=== PATIENT | male | born 1965 | race Caucasian/White ===

== ENCOUNTER 2021-10-24 21:46 | Emergency (ER) | payer MEDICAID ==
[~2021-10-24] VITALS: Ht 172.7 cm; Wt 72.6 kg
--- NOTE | 2021-10-24 23:07 | NUR ---
PROVIDED PT WITH DINNER TRAY, WELL TOLERATED.
[2021-10-24] MEDS: OLANZAPINE 10 MG VIAL IM ONE (23:13)
[2021-10-24] MEDS ORDERED: OLANZAPINE 10 MG VIAL IM ONE (23:19)
--- NOTE | 2021-10-24 23:29 | NUR ---
XRAY AT BEDSIDE.
[2021-10-24] MEDS ORDERED: METF-440 PO (23:33)
[2021-10-24] MEDS ORDERED: ONDA4TAB5 PO (23:33)
[2021-10-24] MEDS ORDERED: BENZ1LOZ58 MM (23:33)
[2021-10-24] MEDS ORDERED: BENZ-13 PO (23:33)
[2021-10-24] MEDS ORDERED: ATOR10TA PO (23:33)
[2021-10-24] MEDS ORDERED: AMLO10TA59 PO (23:33)
[2021-10-24] MEDS ORDERED: LEVE500T9 PO (23:33)
[2021-10-24] MEDS ORDERED: OLAN10TA3 PO (23:33)
[2021-10-24] MEDS ORDERED: HYDR-894 PO (23:33)
[2021-10-24] MEDS ORDERED: DIVA500T54 PO (23:33)
[2021-10-24] MEDS ORDERED: ASPI81TA31 PO (23:33)
[2021-10-24] MEDS ORDERED: OLAN5TAB3 PO (23:33)
[2021-10-24 23:34] LABS: HEMATOCRIT 39.9 % (36.7-47.1); MEAN CORPUSCULAR HEMOGLOBIN 32.2 uug (23.8-33.4); MEAN CORPUSCULAR VOLUME 94.9 fL (73.0-96.2); PLATELET COUNT (AUTO) 308 K/uL (152-348)
[2021-10-24] MEDS: ONDANSETRON ODT 4 MG TAB.RAPDIS SL ONE (23:35)
[2021-10-24] MEDS: HYDROCODONE/APAP 10-325 MG TABLET PO ONE (23:35)
[2021-10-24] MEDS ORDERED: ONDANSETRON ODT 4 MG TAB.RAPDIS ONE (23:41)
[2021-10-24] MEDS ORDERED: HYDROCODONE/APAP 10-325 MG TABLET ONE (23:42)
[2021-10-24 23:43] LABS: CARBON DIOXIDE 27 mmol/L (21-32); CHLORIDE 102 mmol/L (98-107); CREATININE 1.1 mg/dL (0.6-1.3); GLUCOSE 109 mg/dL (74-106); UREA NITROGEN, BLOOD 18 mg/dL (7-18)
[2021-10-24 23:49] LABS: *BILIRUBIN,URIN NEGATIVE (NEGATIVE); *BLOOD, URINE NEGATIVE (NEGATIVE); *CLARITY,URINE CLEAR (CLEAR); *COLOR,URINE YELLOW (YELLOW); *KETONES,URINE TRACE (NEGATIVE); *UROBILINOGEN,URINE 0.2 E.U./dl (NORMAL); LEUKOCYTE ESTERASE ,URINE NEGATIVE (NEGATIVE); NITRITE, URINE NEGATIVE (NEGATIVE); UGLUCOSE NEGATIVE (NEGATIVE)
[2021-10-24 23:52] LABS: ETHANOL < 3 MG/DL (0-0)
[2021-10-24 23:56] LABS: THYROID STIMULATING HORMONE 0.927 mIU/mL (0.358-3.740)
[2021-10-25 00:02] LABS: BILIRUBIN,DIRECT 0.1 mg/dL (0.0-0.2); BILIRUBIN,TOTAL 0.3 mg/dL (0.2-1.0)
[2021-10-25 00:03] LABS: ACETAMINOPHEN < 2.0 ug/mL (10-30); ALANINE AMINOTRANSFERASE 32 U/L (16-63); ALKALINE PHOSPHATASE 87 U/L (50-136); ASPARTATE AMINOTRANSFERASE 16 U/L (15-37); TOTAL PROTEIN, SERUM 7.7 g/dL (6.4-8.2)
[2021-10-25 00:39] LABS: *AMPHETAMINE, URINE NEGATIVE (NEGATIVE); *CANNABINOID, URINE NEGATIVE (NEGATIVE); *COCCAINE, URINE NEGATIVE (NEGATIVE); *OPIATE, URINE NEGATIVE (NEGATIVE); *PHENCYCLIDINE SCREEN,URINE NEGATIVE (NEGATIVE)
--- NOTE | 2021-10-25 01:12 | NUR ---
DAVID FROM CRISIS AT BEDSIDE TO [facility].
--- NOTE | 2021-10-25 04:19 | NUR ---
PT AMBULATED TO RESTROOM, STEADY GAIT.
--- NOTE | 2021-10-25 09:45 | NUR ---
Called [facility] for transport back to [facility], eta 30 mins.
--- NOTE | 2021-10-25 10:35 | NUR ---
PT WAS D/C'd TO HIS NURSING FACILITY VIA [facility]. REPORT WAS GIVEN TO AMBULANCE EMT AND TO NURSING FACILITY [employer]. D/C INSTRUCTIONS GIVEN TO THE PT BY DR PETER.
[2021-10-25 10:39] VITALS: BP 130/69
== END 2021-10-25 10:39 ==
LOC: ER 21:53
DX: F03.90 Unspecified dementia, unspecified severity, without behavioral disturbance, psychotic disturbance, mood disturbance, and anxiety (principal); E05.00 Thyrotoxicosis with diffuse goiter without thyrotoxic crisis or storm; Z71.6 Tobacco abuse counseling; E78.5 Hyperlipidemia, unspecified; J44.9 Chronic obstructive pulmonary disease, unspecified; E11.9 Type 2 diabetes mellitus without complications; F17.290 Nicotine dependence, other tobacco product, uncomplicated; Z79.82 Long term (current) use of aspirin; Z79.899 Other long term (current) drug therapy; Z20.822 Contact with and (suspected) exposure to COVID-19
CPT/HCPCS: 36415; 71045; 84443; 85025; 93005; A4663; G0480; J2358; Q0162